=== PATIENT | male | born 1945 | race Caucasian/White ===

== ENCOUNTER 2017-03-09 16:35 | Emergency (ER) | payer OTHER ==
[~2017-03-09] VITALS: Ht 182.9 cm; Wt 132.0 kg
[~2017-03-09 16:35] MED LIST: ASPIR 8181 M1 PO; CIALIS20 MG PO; GLUCOSAMINE &1 EAC1 PO; HYDROCODON-ACE1 EAC7 PO; LISINOPRIL40 MG PO; PERCOCET 5/31 TABLET PO; TRAMADOL HCL50 MG PO; VITAMIN D2000 UNIT PO
[2017-03-09 17:49] LABS: MCH 31.6 PG (29.0-34.0); MCHC 32.4 G/DL (30.0-36.0); MCV 97.4 FL (86-99); MEAN PLAT.VOLUME 10.4 uM^3 (9.0-12.4); PLATELET COUNT 145 K/uL (156-360); RBC DIS.WIDTH-CV 12.4 % (11.8-14.6); RBC DIS.WIDTH-SD 44.2 % (39-53); RED BLOOD COUNT 4.31 M/uL (4.00-5.50); WHITE BLOOD COUNT 20.2 K/uL (4.1-10.2)
[2017-03-09 18:14] LABS: CHLORIDE 106 mEq/L (99-109); POTASSIUM 4.2 mEq/L (3.7-5.4); SODIUM 139 mEq/L (136-147)
[2017-03-09 18:15] LABS: GLUCOSE 94 mg/dL (70-99)
[2017-03-09 18:17] LABS: ANION GAP 8 MEQ/L (2-14)
[2017-03-09 18:19] LABS: GFR ESTIMATE (CALCULATED) 58 mL/min/
[2017-03-09 18:20] LABS: UREA NITROGEN (BUN) 26 mg/dL (9-23)
[2017-03-09 18:25] LABS: TROP-I INTERPRETATION NEGATIVE; TROPONIN-I < 0.01 ng/mL (0.0-0.30)
[2017-03-09 19:03] LABS: D-DIMER ELISA 1.45 mg/L FEU (< 0.57)
[2017-03-09 20:16] VITALS: BP 122/74
== END 2017-03-09 20:23 | disposition home or self-care (01) ==
LOC: EME 16:35
DX: R06.00 Dyspnea, unspecified (principal); I10 Essential (primary) hypertension; Z86.718 Personal history of other venous thrombosis and embolism; Z79.82 Long term (current) use of aspirin; Z85.6 Personal history of leukemia; Z88.0 Allergy status to penicillin; Z88.2 Allergy status to sulfonamides
CPT/HCPCS: 71020; 71275; 80048; 84484; 85027; 85379; 93005; 99281; 99285; J7040